=== PATIENT | female | born 1995 | race African-American/Black ===

== ENCOUNTER 2023-07-12 21:39 | Inpatient (IN) | payer OTHER ==
[2023-07-12 22:09] VITALS: BMI 18.3
[2023-07-12] MEDS ORDERED: DICYCLOMINE HCL 10 MG CAPSULE PO PRN (23:47)
[2023-07-12] MEDS ORDERED: ACETAMINOPHEN 325 MG TABLET (FP) PO PRN (23:47)
[2023-07-12] MEDS ORDERED: BISMUTH SUBSALICYLATE 524 MG/30 ML PO PRN (23:47)
[2023-07-12] MEDS ORDERED: LOPERAMIDE HCL 2 MG CAPSULE PO PRN (23:47)
[2023-07-12] MEDS ORDERED: BENZONATATE 200 MG CAPSULE PO PRN (23:47)
[2023-07-12] MEDS ORDERED: MAG HYDROX/AL HYDROX/SIMETH 30 ML UNIT-DOSE CUP PO PRN (23:47)
[2023-07-12] MEDS ORDERED: IBUPROFEN 400 MG TABLET (FP) PO PRN (23:47)
[2023-07-12] MEDS ORDERED: guaiFENesin 600 MG TABLET.ER (FP) PO PRN (23:47)
[2023-07-12] MEDS ORDERED: BENZOCAINE/MENTHOL (CHLORASEPTIC ) LOZENGE MM PRN (23:47)
[2023-07-13] MEDS ORDERED: chlordiazePOXIDE HCL 25 MG CAPSULE PO PRN (10:00)
[2023-07-13] MEDS: PRENATAL VITAMINS W/ FOLIC ACID TABLET (FP) PO SCH (10:34)
[2023-07-13] MEDS: hydrOXYzine PAMOATE 25 MG CAPSULE (FP) PO PRN (10:35)
[2023-07-13] MEDS: chlordiazePOXIDE HCL 25 MG CAPSULE PO SCH (10:35)
[2023-07-13 11:55] LABS: HEMATOCRIT 33.1 % (32.4-45.2); HEMOGLOBIN 10.9 GM/dL (10.7-15.3); MCH 31.6 pg (25.7-33.7); MEAN PLT VOLUME 8.4 fl (7.5-11.1); PLATELET COUNT 294 10^3/uL (134-434); RBC 3.45 M/mm3 (3.60-5.2); RDW 13.1 % (11.6-15.6); WHITE BLOOD COUNT 7.5 K/mm3 (4.0-10.0)
[2023-07-13 12:05] LABS: POTASSIUM 4.1 mmol/L (3.5-5.1)
[2023-07-13 12:11] LABS: CALCIUM 8.5 mg/dL (8.5-10.1)
[2023-07-13 12:12] LABS: ALBUMIN 3.1 g/dl (3.4-5.0); BLOOD UREA NITROGEN 14.9 mg/dL (7-18)
[2023-07-13 12:15] LABS: CREATININE 0.6 mg/dL (0.55-1.3)
[2023-07-13 12:16] LABS: BILIRUBIN,TOTAL 0.4 mg/dL (0.2-1); TOT PROT 6.5 g/dl (6.4-8.2)
[2023-07-13] MEDS: METHOCARBAMOL 500 MG TABLET PO PRN (16:43)
[2023-07-13] MEDS: MIRTAZAPINE 15 MG TABLET (FP) PO SCH (22:58)
[2023-07-13] MEDS: THIAMINE HCL 100 MG TABLET (FP) PO SCH (22:58)
[2023-07-13] MEDS: MELATONIN 5 MG TABLETS PO SCH (22:58)
[2023-07-14] MEDS: hydrOXYzine PAMOATE 25 MG CAPSULE (FP) PO PRN (02:04)
[2023-07-14] MEDS: SERTRALINE HCL 50 MG TABLET (FP) PO SCH (10:44)
[2023-07-14] MEDS: ARIPiprazole 2 MG TABLET PO SCH (10:44)
[2023-07-14] MEDS: ONDANSETRON *ODT* 4 MG TABLET SL PRN (17:24)
[2023-07-14] MEDS: QUEtiapine FUMARATE 50 MG TABLET PO SCH (22:22)
[2023-07-14] MEDS: PRAZOSIN HCL 1 MG CAPSULE PO SCH (22:22)
[2023-07-14] MEDS: traZODone HCL 50 MG TABLET (FP) PO SCH (22:22)
[2023-07-14] MEDS: METHOCARBAMOL 500 MG TABLET PO PRN (22:28)
[2023-07-15] MEDS: chlordiazePOXIDE HCL 25 MG CAPSULE PO SCH (06:00)
[2023-07-15] MEDS: NICOTINE POLACRILEX 2 MG GUM BUC PRN (06:14)
[2023-07-15] MEDS: IBUPROFEN 600 MG TABLET (FP) PO PRN (10:28)
[2023-07-15] MEDS: MAGNESIUM HYDROX 2400MG/30ML ORAL SUSPENSION 30 ML CUP PO PRN (17:01)
[2023-07-15] MEDS: BISACODYL 5 MG TABLET.DR (FP) PO ONE (18:33)
[2023-07-15] MEDS ORDERED: HYDROCORTISONE 2.5% TOPICAL CREAM 30 GM TUBE TP SCH (22:00)
[2023-07-15] MEDS: HYDROCORTISONE ACETATE 25 MG/SUPP.RECT RC SCH (22:25)
[2023-07-16] MEDS: chlordiazePOXIDE HCL 10 MG CAPSULE PO SCH (05:37)
[2023-07-16] MEDS: NICOTINE POLACRILEX 2 MG LOZENGE BC PRN (07:03)
[2023-07-16] MEDS: chlordiazePOXIDE HCL 10 MG CAPSULE PO PRN (14:08)
[2023-07-16] MEDS: POLYETHYLENE GLYCOL (HEALTHYLAX) 3350 17 GM PACKET PO PRN (17:11)
[2023-07-16] MEDS: LACTULOSE 20 GM/30 ML UDC (FOR ORAL USE ONLY) PO ONE (18:35)
[2023-07-16 20:51] VITALS: RESP 16
[2023-07-16] MEDS: DOCUSATE SODIUM 100 MG CAPSULE (FP) PO SCH (22:27)
[2023-07-17] MEDS: chlordiazePOXIDE HCL 10 MG CAPSULE PO SCH (05:32)
[2023-07-17 10:54] VITALS: BP 111/77; PULSE 84; TEMP 98.2
[2023-07-18] MEDS ORDERED: chlordiazePOXIDE HCL 10 MG CAPSULE PO ONE (05:00)
== END 2023-07-17 11:24 | disposition home or self-care (01) | DRG 775 ==
LOC: YASAS 21:39 → Y3N 07-13 02:02
PROVIDERS: ADMIT Allergy & Immunology; ATTEND Surgery
PROC: HZ2ZZZZ Detoxification Services for Substance Abuse Treatment (ICD-10-PCS; principal; 2023-07-13)
DX: F10.230 Alcohol dependence with withdrawal, uncomplicated (principal); F15.10 Other stimulant abuse, uncomplicated; F12.20 Cannabis dependence, uncomplicated; F17.210 Nicotine dependence, cigarettes, uncomplicated; F19.24 Other psychoactive substance dependence with psychoactive substance-induced mood disorder; G47.00 Insomnia, unspecified; Z86.59 Personal history of other mental and behavioral disorders; Z59.01 Sheltered homelessness
CPT/HCPCS: 36415; 80053; 80305; 81025; 85027; 86780; 87811; 93005; 93010; Q0162

== ENCOUNTER 2024-04-11 18:01 | Inpatient (IN) | payer OTHER ==
[2024-04-11 18:50] VITALS: BMI 21.4
[2024-04-11] MEDS ORDERED: DICYCLOMINE HCL 10 MG CAPSULE PO PRN (18:53)
[2024-04-11] MEDS ORDERED: BENZONATATE 200 MG CAPSULE PO PRN (18:53)
[2024-04-11] MEDS ORDERED: BENZOCAINE/MENTHOL (CHLORASEPTIC ) LOZENGE MM PRN (18:53)
[2024-04-11] MEDS ORDERED: ONDANSETRON *ODT* 4 MG TABLET SL PRN (18:53)
[2024-04-11] MEDS ORDERED: NALOXONE (NARCAN) HCL 4 MG/0.1 ML SPRAY NS PRN (18:53)
[2024-04-11] MEDS ORDERED: guaiFENesin 600 MG TABLET.ER (FP) PO PRN (18:53)
[2024-04-11] MEDS ORDERED: MAG HYDROX/AL HYDROX/SIMETH 30 ML UNIT-DOSE CUP PO PRN (18:53)
[2024-04-11] MEDS ORDERED: ACETAMINOPHEN 325 MG TABLET (FP) PO PRN (18:53)
[2024-04-11] MEDS ORDERED: NICOTINE POLACRILEX 2 MG LOZENGE BC PRN (18:53)
[2024-04-11] MEDS ORDERED: POLYETHYLENE GLYCOL (HEALTHYLAX) 3350 17 GM PACKET PO PRN (18:53)
[2024-04-11] MEDS ORDERED: BISMUTH SUBSALICYLATE 524 MG/30 ML PO PRN (18:53)
[2024-04-11] MEDS ORDERED: LOPERAMIDE HCL 2 MG CAPSULE PO PRN (18:53)
[2024-04-11] MEDS ORDERED: IBUPROFEN 400 MG TABLET (FP) PO PRN (18:53)
[2024-04-11] MEDS ORDERED: NICOTINE POLACRILEX 2 MG GUM BUC PRN (18:53)
[2024-04-11] MEDS ORDERED: MAGNESIUM HYDROX 2400MG/30ML ORAL SUSPENSION 30 ML CUP PO PRN (18:53)
[2024-04-11] MEDS ORDERED: diazePAM 5 MG TABLET ONE (22:27)
[2024-04-11] MEDS ORDERED: MELATONIN 5 MG TABLETS ONE (22:28)
[2024-04-11] MEDS: MELATONIN 5 MG TABLETS PO SCH (22:33)
[2024-04-11] MEDS: diazePAM 5 MG TABLET PO SCH (22:33)
[2024-04-11] MEDS: THIAMINE 100 MG TABLET PO SCH (22:33)
[2024-04-12] MEDS ORDERED: diazePAM 5 MG TABLET ONE ×2 (06:12→10:32)
[2024-04-12] MEDS ORDERED: PRENATAL VITAMINS W/ FOLIC ACID TABLET (FP) PO ONE (10:33)
[2024-04-12] MEDS: PRENATAL VITAMINS W/ FOLIC ACID TABLET (FP) PO SCH (10:33)
[2024-04-12 12:38] LABS: HEMATOCRIT 32.3 % (32.4-45.2); HEMOGLOBIN 10.5 GM/dL (10.7-15.3); MCH 30.5 pg (25.7-33.7); MCHC 32.5 g/dl (32.0-36.0); MEAN CELL VOLUME 94.1 fl (80-96); MEAN PLT VOLUME 7.8 fl (7.5-11.1); PLATELET COUNT 348 10^3/uL (134-434); RBC 3.43 M/mm3 (3.60-5.2); RDW 13.6 % (11.6-15.6); WHITE BLOOD COUNT 5.6 K/mm3 (4.0-10.0)
[2024-04-12 12:51] LABS: POTASSIUM 4.3 mmol/L (3.5-5.1)
[2024-04-12 13:01] LABS: ALBUMIN 3.5 g/dl (3.4-5.0); BLOOD UREA NITROGEN 12.8 mg/dL (7-18); CALCIUM 9.4 mg/dL (8.5-10.1)
[2024-04-12 13:04] LABS: CREATININE 0.7 mg/dL (0.55-1.3)
[2024-04-12 13:06] LABS: BILIRUBIN,TOTAL 0.2 mg/dL (0.2-1); TOT PROT 6.3 g/dl (6.4-8.2)
[2024-04-12] MEDS: METHOCARBAMOL 500 MG TABLET PO PRN (17:42)
[2024-04-12] MEDS: IBUPROFEN 600 MG TABLET (FP) PO PRN (17:42)
[2024-04-12] MEDS: LIDOCAINE 4% PATCH TP SCH (18:44)
[2024-04-12] MEDS: LIDOCAINE PATCH REMOVAL MC SCH (22:55)
[2024-04-13] MEDS: diazePAM 5 MG TABLET PO SCH (05:40)
[2024-04-13] MEDS ORDERED: LIDOCAINE 5% TOPICAL PATCH TP SCH (10:00)
[2024-04-13] MEDS: METHYL SALICYLATE/MENTHOL 30 GM TUBE TP SCH (11:08)
[2024-04-13] MEDS ORDERED: ALBUTEROL SO4 HFA INHALER IH ONE (20:13)
[2024-04-13] MEDS ORDERED: LIDOCAINE PATCH REMOVAL MC SCH (22:00)
[2024-04-14] MEDS: hydrOXYzine PAMOATE 25 MG CAPSULE (FP) PO PRN (01:07)
[2024-04-14] MEDS: diazePAM 5 MG TABLET PO SCH (05:33)
[2024-04-14] MEDS: diazePAM 5 MG TABLET PO PRN (10:28)
[2024-04-14] MEDS: SERTRALINE HCL 50 MG TABLET (FP) PO SCH (11:00)
[2024-04-14] MEDS: GABAPENTIN 300 MG CAPSULE PO SCH (13:51)
[2024-04-14] MEDS: ALBUTEROL SO4 HFA INHALER IH PRN (18:28)
[2024-04-14] MEDS: SERTRALINE HCL 50 MG TABLET (FP) PO ONE (18:44)
[2024-04-14] MEDS: MIRTAZAPINE 15 MG TABLET (FP) PO SCH (21:41)
[2024-04-14] MEDS: PRAZOSIN HCL 1 MG CAPSULE PO SCH (21:42)
[2024-04-15] MEDS: diazePAM 5 MG TABLET PO ONE (05:51)
[2024-04-15 09:15] VITALS: TEMP 97.7
[2024-04-15] MEDS: NALOXONE (NYS OPIOID OVERDOSE PROGRAM) 4 MG/0.1 ML SPRAY NS SCH (10:18)
[2024-04-15 13:04] VITALS: BP 143/86; PULSE 60; RESP 17
== END 2024-04-15 14:45 | disposition home or self-care (01) | DRG 774 ==
LOC: YASAS 18:01 → Y3N 04-12 11:48
PROVIDERS: ADMIT Allergy & Immunology; ATTEND Surgery
PROC: HZ2ZZZZ Detoxification Services for Substance Abuse Treatment (ICD-10-PCS; principal; 2024-04-12)
DX: F10.230 Alcohol dependence with withdrawal, uncomplicated (principal); F14.20 Cocaine dependence, uncomplicated; F12.20 Cannabis dependence, uncomplicated; F17.210 Nicotine dependence, cigarettes, uncomplicated; F19.282 Other psychoactive substance dependence with psychoactive substance-induced sleep disorder; F19.24 Other psychoactive substance dependence with psychoactive substance-induced mood disorder; F32.A Depression, unspecified; F43.10 Post-traumatic stress disorder, unspecified; M54.50 Low back pain, unspecified; G89.29 Other chronic pain; Z56.0 Unemployment, unspecified; Z59.00 Homelessness unspecified
CPT/HCPCS: 36415; 80053; 85027; 86780; 93005; 93010